=== PATIENT | male | born 1950 | race Caucasian/White ===

== ENCOUNTER → 2019-12-31 12:16 | Outpatient (BNVA) | payer MEDICARE, OTHER, SELFPAY | PROVIDERS: Family Provider Nurse Practitioner Family; PCP Nurse Practitioner Family; Visit Provider Internal Medicine Nephrology | DX: N18.3 Chronic kidney disease, stage 3 (moderate) (principal) | CPT/HCPCS: 80069; 81000; 82306; 82310; 83970; 85025 ==

== ENCOUNTER 2020-01-25 13:47 | Outpatient (CLI) | payer MEDICARE, OTHER, SELFPAY | END 2020-01-25 13:48 | disposition home or self-care (01) | LOC: SPT 13:48 | PROVIDERS: Family Provider Nurse Practitioner Family; PCP Nurse Practitioner Family; Visit Provider Podiatrist Foot & Ankle Surgery | DX: L97.522 Non-pressure chronic ulcer of other part of left foot with fat layer exposed (principal) | CPT/HCPCS: 97760; L4361 ==

== ENCOUNTER → 2020-03-15 11:56 | Outpatient (BNVA) | payer MEDICARE, OTHER, SELFPAY | PROVIDERS: Family Provider Nurse Practitioner Family; PCP Nurse Practitioner Family; Visit Provider Nurse Practitioner Family | DX: R53.83 Other fatigue (principal) | CPT/HCPCS: 71046 ==

== ENCOUNTER 2020-03-15 19:55 | Emergency (ER) | payer MEDICARE, OTHER, SELFPAY ==
[2020-03-15 20:00] VITALS: BP 147/93; PULSE 89; RESP 19; TEMP 36.4; O2SAT 97; BMI 29.0
--- NOTE | 2020-03-15 20:24 | ED_ITS ---
HPI - General Adult General: Chief complaint: General Medical Stated complaint: urgent care sent him/ kidney/liver/lungs Time Seen by Provider: 03/15/20 20:20 History of Present Illness: HPI narrative: Patient is a 69-year-old male who comes to the ED after being sent over here by [facility] in [facility] for elevated creatinine level. Patient has a past medical history of pericardial effusion, hypertension, hyperlipidemia, atrial fibrillation, CVA and type 2 diabetes. Patient states that pain or discomfort. Patient says he feels pretty well. He has been treated for a sinus infection and has been taking cefdinir and a steroid to treat that. He does endorse not drinking a lot of fluids lately and that he feels like he is a little dehydrated. Patient also says that he has had loss of appetite since the onset of his sinus infection. Patient complains of having a mild cough. Patient endorses being constipated and he has not had a bowel movement in approximately 3 days. He says his last bowel movement was hard and formed and he had to strain to get it out. Denies any fever, chills, chest pain, shortness of breath, palpitations, nausea/vomiting, abdominal pain, diarrhea, blood in stool, dysuria and hematuria. Associated symptoms: Deny chest pain, dyspnea, headache(s), nausea, rash, palpitations or vomiting Review of Systems 2 Const: Reports: change in appetite (decrease); Denies: fever(s), chills or fatigue Eyes: Denies: change in vision or eye discomfort ENMT: Denies: throat pain, odynophagia, nasal discharge or nasal congestion Card: Denies: chest pain, palpitations, edema, swelling of feet/ankles, dyspnea on exertion or orthopnea Resp: Reports: non-productive cough; Denies: dyspnea or productive cough GI: Reports: constipation; Denies: abdominal pain, nausea, vomiting, diarrhea or hematochezia : Denies: flank pain, difficulty urinating, dysuria or hematuria Musc: Denies: neck pain, back pain or extremity swelling Skin/Breast: Denies: rash or new lesions Neuro: Denies: headache(s), numbness in extremities or weakness in extremities PFS ED 2 PFSH: Medical History Atrial fibrillation CVA (cerebral vascular accident) Diabetes Gout History of amputation of toe History of MRSA infection History of stroke Hyperlipidemia Hypertension Pericardial effusion Surgical History History of lung surgery Family History Other CAD (coronary artery disease) Cancer Diabetes Hypertension Social History Smoking and tobacco status: never smoked Alcohol intake: never Current occupational status: retired Physical Exam Const: COMMON NORMALS: no acute distress, patient oriented x3 and alert GENERAL APPEARANCE: cooperative and comfortable HENMT: COMMON NORMALS: normocephalic HEAD & SCALP: normocephalic MOUTH: moist mucous membranes abnormal (mild) THROAT: posterior oropharynx normal and uvula midline Eye: COMMON NORMALS: Equal, round and reactive pupils present PUPIL: Yes Equal, round and reactive pupils present and Yes Irregular pupils on the left (Irregular shaped pupil.) Neck/C-Spine: COMMON NORMALS: supple GENERAL: Yes normal visual inspection Resp: COMMON NORMALS: normal respiratory effort, No retractions, No use of accessory muscles and clear to auscultation bilaterally EFFORT & INSPECTION: Yes able to speak in complete sentences, No respiratory distress and No labored AUSCULTATION: clear to auscultation bilaterally Cardio: COMMON NORMALS: regular rate, regular rhythm, S1 normal heart sound present, S2 normal heart sound present, No gallops present (Cardio), No clicks present (Cardio), No murmurs present (Cardio) and Peripheral pulses 2+ throughout RATE: regular rate RHYTHM: regular rhythm HEART SOUNDS: S1 normal heart sound present and S2 normal heart sound present PERIPHERAL PULSES: Peripheral pulses 2+ throughout GI: COMMON NORMALS: Normal to inspection, nondistended, normoactive bowel sounds present, Soft to palpation, non-tender and no masses PALPATION: Yes Soft to palpation : COMMON NORMALS: Yes no CVA tenderness BLADDER/KIDNEY EXAM: Yes no CVA tenderness Back/Pelvis: COMMON NORMALS: no CVA tenderness Extremity: COMMON NORMALS: normal to inspection and no pedal edema Neuro: COMMON NORMALS: patient oriented x3 and moves all extremities SENSORIUM/ORIENTATION: Yes alert Skin: COMMON NORMALS: no rashes or lesions noted GENERAL SKIN EXAM: no rashes or lesions noted and dry skin Course Reevaluation(s): Reevaluation #1: After patient received IV fluids he said he felt more energized and thought he seemed like he is acting like his old self. Vital Signs: Vital signs: Vital Signs Temperature 97.6 F 03/15/20 20:00 Pulse Rate 102 H 03/15/20 23:26 Respiratory Rate 20 H 03/15/20 23:26 Blood Pressure 180/112 03/15/20 23:26 Pulse Oximetry 97 03/15/20 23:26 MDM - General Adult MDM Narrative: Medical decision making narrative: Patient is a 69-year-old male who was sent over to the ED by [facility] due to elevated creatinine lab. Patient has a past medical history of diabetes type 2, hypertension, hyperlipidemia, A. fib. Patient presents to the ED with his only complaint of constipation for the past 3 days. Patient states he is feeling fine. He was recently diagnosed with sinusitis and given a steroid and cefdinir to treat. COVID-19 test pending., UA showed no acute findings. Creatinine was 2.4 and creatinine lab approximately 2 months ago was 1.9. White blood cells 7. The rest of CBC and CMP showed no other acute findings. Chest x-ray showed some possible lower lobe infiltrates but comparing to previous chest x-ray these infiltrates were present suggesting chronic issue. CT of the abdomen showed no acute findings but did show some groundglass infiltrates?consider COVID-19 pneumonia or viral pneumonia. Patient is showing no signs of any respiratory distress and lungs were clear to auscultation bilaterally. Patient was given 1.5 L of IV fluid and discharged. Patient was told to follow-up with primary care doctor by early next week and to get creatinine lab rechecked. Return to ED precautions given. Patient was told that COVID testing should be resulted in 2 to 4 days. Patient understood and agreed with plan. Lab Data: Attestation: I reviewed the patient's lab results. Labs: Lab Results 03/15/20 Range/Units 21:45 Urine Color Yellow (Yellow) Urine Appearance Clear (CLEAR) Urine pH 5 (5-7) Ur Specific Gravit y 1.020 (1.005-1.030) Urine Protein 3+ H (Negative) Urine Glucose (UA) Norm (Normal) Urine Ketones Negative (Negative) Urine Blood 2+ H (Negative) Urine Nitrate Negative (Negative) Urine Bilirubin Neg (NEGATIVE) Urine Urobilinogen Norm (Negative) mg/dL Ur Leukocyte Malina ase Negative (Negative) Urine RBC Rare (0-2) /hpf Urine WBC 0-4 H (0-5) /hpf Ur Squamous Epith Cells Rare (0-5) Amorphous Sediment Not Reportable Urine Bacteria Trace (NONE) Urine Mucus 2+ Imaging Data^: CXR: Attestation: I personally reviewed and interpreted this imaging study as follows: My impression: Right lung infiltrates on lower lobe seen. Unchanged left lower lobe pleural effusion. Previous x-ray showed same infiltrates along with left lower lobe pleural effusion. Pending final radiology report. CT Abd/Pel: Attestation: I personally reviewed and interpreted this imaging study as follows: Radiologist's impression: [address] [address] [address] Scan Report Signed Patient: Clemente Barton Unit #: [id number] : 1950 Age/Sex: 69 / M ADM Date: 03/15/20 Loc: ER Room/Bed: Attending Dr: Ordering Provider/Ordering MD: Rodney Harvey Date of Service: 03/15/20 Procedure(s): CT abdomen pelvis con [id number] Accession Number(s): [id number] Report Number: [id number] PROCEDURE INFORMATION: Exam: CT Abdomen And Pelvis Without Contrast Exam date and time: 03/15/2020 9:09 PM Age: 69 years old Clinical indication: Constipation; Prior surgery; Surgery type: Cholecystectomy, gastric sleeve; Additional info: Constipation and eleated creatinine TECHNIQUE: Imaging protocol: Computed tomography of the abdomen and pelvis without contrast. Radiation optimization: All CT scans at this facility use at least one of these dose optimization techniques: automated exposure control; mA and/or kV adjustment per patient size (includes targeted exams where dose is matched to clinical indication); or iterative reconstruction. COMPARISON: No relevant prior studies available. RADIATION DOSE METRICS: Total DLP (mGy-cm): 1789.2 FINDINGS: Lungs: Multiple bilateral relatively rounded ground-glass infiltrates in both lower lobes. Heart: Pericardial effusion measures up to 7 mm in depth anteriorly. Liver: Normal. No mass. Gallbladder and bile ducts: Normal. No calcified stones. No ductal dilation. Pancreas: Normal. No ductal dilation. Spleen: Normal. No splenomegaly. Adrenals: Normal. No mass. Kidneys and ureters: 2.3 cm exophytic cyst arises from the left lower renal pole. Density is close to that of the kidney and evaluation is limited without IV contrast. Stomach and bowel: Chronic gastric postop changes with small gastric volume. Slightly increased stool in the rectosigmoid colon. Appendix: No evidence of appendicitis. Intraperitoneal space: Unremarkable. No free air. No significant fluid collection. Vasculature: Unremarkable. No abdominal aortic aneurysm. Lymph nodes: Unremarkable. No enlarged lymph nodes. Bladder: Unremarkable as visualized. Reproductive: Unremarkable as visualized. Bones/joints: Unremarkable. No acute fracture. Soft tissues: Elevated left diaphragm appears chronic. There is also a chronic focal diaphragmatic hernia containing a nonobstructed portion of the sigmoid colon. See coronal images 25 [address]/CT abdomen pelvis wo con [id number] IMPRESSION: 1. No acute abdominopelvic findings. 2. Multifocal bilateral lower lobe ground-glass infiltrates. Consider COVID-19 pneumonia as well as other viral pneumonias. 3. Indeterminate left renal cystic lesion. Consider outpatient follow-up with ultrasound to confirm a simple cyst. Radiation Dose CTDIVOL = (mGy): DLP = 1789.2 (mGy-cm) Dictated By: Bud Beltre MD Signed By: Bud Beltre MD Signed Date/Time: 03/15/202147 DD/ 45 Discharge Plan Discharge Patient Disposition: Home Clinical Impression: Acute dehydration, Encounter for screening laboratory testing for COVID-19 virus, Creatinine elevation Constipation Qualifiers: Constipation type: slow transit constipation Qualified Code(s): K59.01 - Slow transit constipation Condition: Stable Prescriptions: New Miralax 17 gram/dose powder 17 gm PO DAILY PRN (Reason: constipation) Qty: 119 RF: 0 No Action metoprolol succinate [Toprol XL] 25 mg tablet extended release 24 hr 25 mg PO BID RF: 0 warfarin [Coumadin] 5 mg tablet See Rx Instructions .ROUTE .COMPLEX RF: 0 cyanocobalamin (vitamin B-12) 1,000 mcg capsule 1,000 mcg PO DAILY RF: 0 aspirin [Adult Low Dose Aspirin] 81 mg tablet,delayed release (DR/EC) 81 mg PO DAILY RF: 0 timolol 0.25 % drops 1 drop ophthalmic (eye) DAILY RF: 0 multivitamin Tablet 1 tab PO DAILY RF: 0 Adult Probiotic 3 billion cell capsule 3,000 mmu cells PO DAILY RF: 0 simvastatin 20 mg tablet 20 mg PO DAILY RF: 0 ondansetron HCl [Zofran] 4 mg tablet 4 mg PO Q8H PRN (Reason: nausea and vomiting) Qty: 20 RF: 0 cholecalciferol (vitamin D3) 25 mcg (1,000 unit) capsule 25 mcg PO DAILY RF: 0 (DME) cam boot See Rx Instructions .Route .MEDSUPPLY Qty: 1 RF: 0 cefdinir 300 mg capsule 300 mg PO BID Qty: 14 RF: 0 Ed A-Hist DM 4-10-10 mg tablet 1 tab PO Q6H PRN (Reason: allergy symptoms) Qty: 30 RF: 0 Discharge Orders: Discharge Order (Routine); Ordered 03/15/20 Ordered By: Rodney Harvey Referrals: Yeni Barry APN [Primary Care Provider] - Discharge Diet: Regular Discharge Activity: Increase activity as tolerated Patient Instructions: Constipation - Adult, Dehydration - Adult Activity Restrictions/Additional Instructions: Follow-up with medical provider as directed by early next week. Make sure you drink plenty of fluids and stay hydrated. Take prescribed MiraLAX as needed for constipation. Have your primary care physician check your creatinine level at your next scheduled appointment. return to the ER or your medical provider if condition worsens. Please read and understand discharge instructions. If any questions, please ask. Discharge Date/Time: 03/15/20 23:28 Coding Level of Care Code ED Accounts Payable Clerk for [employer]elfo Fwd Exam Comprehensive
[2020-03-15 20:34] VITALS: BP 157/108; PULSE 102; RESP 14; O2SAT 98
[2020-03-15] MEDS: sodium chloride 0.9% 1,000 ML 999 ML IV (20:40)
--- NOTE | 2020-03-15 20:48 | XR_ITS ---
WS: [id number] Portable AP upright chest, 03/15/2020 Clinical Data: cough and congestion Comparison: PA chest, 03/15/2020 Findings: No nodules, masses or effusions are seen. The heart is normal. The pulmonary vascularity is not increased. There is a patchy opacity involving the right lung which could represent minimal atel ectasis or early pneumonia. The left diaphragm is elevated with atelectasis over the surface. The aor tic arch and descending aorta are tortuous. XR/XR chest 1V portable [id number] Impression: 1. Minimal patchy opacity involving the right lung which could represent minima l pneumonia and recommend repeat chest x-ray in one to 2 days. 2. No change in elevated left diaphragm and atherosclerosis.
--- NOTE | 2020-03-15 20:48 | CTR_ITS ---
PROCEDURE INFORMATION: Exam: CT Abdomen And Pelvis Without Contrast Exam date and time: 03/15/2020 9:09 PM Age: 69 years old Clinical indication: Constipation; Prior surgery; Surgery type: Cholecystectomy, gastric sleeve; Additional info: Constipation and eleated creatinine TECHNIQUE: Imaging protocol: Computed tomography of the abdomen and pelvis without contrast. Radiation optimization: All CT scans at this facility use at least one of these dose optimization techniques: automated exposure control; mA and/or kV adjustment per patient size (includes targeted exams where dose is matched to clinical indication); or iterative reconstruction. COMPARISON: No relevant prior studies available. RADIATION DOSE METRICS: Total DLP (mGy-cm): 1789.2 FINDINGS: Lungs: Multiple bilateral relatively rounded ground-glass infiltrates in both lower lobes. Heart: Pericardial effusion measures up to 7 mm in depth anteriorly. Liver: Normal. No mass. Gallbladder and bile ducts: Normal. No calcified stones. No ductal dilation. Pancreas: Normal. No ductal dilation. Spleen: Normal. No splenomegaly. Adrenals: Normal. No mass. Kidneys and ureters: 2.3 cm exophytic cyst arises from the left lower renal pole. Density is close to that of the kidney and evaluation is limited without IV contrast. Stomach and bowel: Chronic gastric postop changes with small gastric volume. Slightly increased stool in the rectosigmoid colon. Appendix: No evidence of appendicitis. Intraperitoneal space: Unremarkable. No free air. No significant fluid collection. Vasculature: Unremarkable. No abdominal aortic aneurysm. Lymph nodes: Unremarkable. No enlarged lymph nodes. Bladder: Unremarkable as visualized. Reproductive: Unremarkable as visualized. Bones/joints: Unremarkable. No acute fracture. Soft tissues: Elevated left diaphragm appears chronic. There is also a chronic focal diaphragmatic hernia containing a nonobstructed portion of the sigmoid colon. See coronal images 25 through [address]/CT abdomen pelvis wo con [id number] IMPRESSION: 1. No acute abdominopelvic findings. 2. Multifocal bilateral lower lobe ground-glass infiltrates. Consider COVID-19 pneumonia as well as other viral pneumonias. 3. Indeterminate left renal cystic lesion. Consider outpatient follow-up with ultrasound to confirm a simple cyst. Radiation Dose CTDIVOL = (mGy): DLP = 1789.2 (mGy-cm)
[2020-03-15 22:13] LABS: Add Urine Microscopic? YES; Bilirubin Urine Neg (NEGATIVE); Blood Urine 2+ (Negative); Glucose Urine UA Norm (Normal); Ketones Urine Negative (Negative); Leukocyte Esterase Urine Negative (Negative); Nitrate Urine Negative (Negative); Protein Urine 3+ (Negative); Urine Appearance Clear (CLEAR); Urine Color Yellow (Yellow); Urobilinogen Urine Norm (Negative); pH Urine 5 (5-7)
[2020-03-15 22:14] VITALS: BP 161/114; PULSE 103; RESP 14; O2SAT 97
[2020-03-15 22:14] LABS: Bacteria Urine TRACE; Mucus Urine 2+; RBC Urine RARE /hpf (0-2); Squamous Epithelial Cell Urine RARE (0-5); WBC Urine 0-4 /hpf (0-5)
[2020-03-15] MEDS: sodium chloride 0.9% 500 ML 999 ML IV (22:47)
[2020-03-15 22:49] VITALS: BP 161/102; PULSE 93; RESP 14; O2SAT 97
[2020-03-15 23:26] VITALS: BP 180/112; PULSE 102; RESP 20; O2SAT 97
[2020-03-17 15:17] LABS: Quest SARS-CoV-2 RNA DETECTED (NOT DETECTED)
--- NOTE | 2020-03-17 16:18 | PC.NURSE ---
PT WAS CALLED AND INFORMED OF A POSITIVE COVID RESULT
== END 2020-03-15 23:28 | disposition home or self-care (01) ==
PROVIDERS: Emergency Medicine; Emergency Provider Physician Assistant; PCP Nurse Practitioner Family
DX: K59.01 Slow transit constipation (principal); E86.0 Dehydration; U07.1 COVID-19; I48.91 Unspecified atrial fibrillation; Z86.73 Personal history of transient ischemic attack (TIA), and cerebral infarction without residual deficits; E11.9 Type 2 diabetes mellitus without complications; E78.5 Hyperlipidemia, unspecified; I10 Essential (primary) hypertension
CPT/HCPCS: 12345; 71045; 74176; 80053; 81001; 85025; 87635; 96360; 96361; 99282; 99283; J7030; J7040

== ENCOUNTER 2020-04-19 10:08 | Outpatient (CLI) | payer MEDICARE, OTHER, SELFPAY ==
--- NOTE | 2020-04-19 10:15 | USCV_ITS ---
Clemente Barton Age: 69 Gender: M : 1950 Exam Date: 04/19/2020 10:53 Ordering Phys: Katie Kearney MD ([email or web address]) Technologist: Rosalinda Umana Exam Location: [facility] [place] Indication: PERICARDIAL EFFUSION BP: 135 / 83 HR: 82 Rhythm: Sinus Technical Quality: Suboptimal MEASUREMENTS (Male / Female) Normal Values 2D ECHO LV Diastolic Diameter PLAX 3.6 cm 4.2 - 5.9 / 3.9 - 5.3 cm LV Systolic Diameter PLAX 3.1 cm LV Chamber Size 3.4 cm IVS Diastolic Thickness 1.2 cm 0.6 - 1.0 / 0.6 - 0.9 cm IVS Systolic Thickness 1.9 cm LVPW Diastolic Thickness 1.7 cm 0.6 - 1.0 / 0.6 - 0.9 cm LVPW Systolic Thickness 1.9 cm RV Chamber Size 3.6 cm LVOT Diameter 2.0 cm LV Ejection Fraction 2D Teich 27.8 % LV Ejection Fraction MOD 2C 59.8 % LV Ejection Fraction 2C AL 60.3 % LA Diameter 4.2 cm LA Width 4.3 cm LA Height 4.9 cm RA Width 2.8 cm RA Height 4.9 cm Aorta at Sinotubular Diameter 2.6 cm M-MODE LV Diastolic Diameter MM 4.8 cm 4.2 - 5.9 / 3.9 - 5.3 cm LV Systolic Diameter MM 3.6 cm LV Ejection Fraction MM Teich 50.5 % IVS Diastolic Thickness MM 0.7 cm 0.6 - 1.0 / 0.6 - 0.9 cm IVS Systolic Thickness MM 1.1 cm LVPW Diastolic Thickness MM 1.0 cm 0.6 - 1.0 / 0.6 - 0.9 cm LVPW Systolic Thickness MM 1.3 cm Aortic Annulus Diameter 3.7 cm LA Ao Ratio MM 1.2 MV E Point Septal Separation 0.9 cm FINDINGS Left Ventricle Normal left ventricular size and systolic function, EF55%. Mild to moderate concentric left ventricular hypertrophy.no regional wall motion abnormalities. Right Ventricle The right ventricle is normal in size and function. Right Atrium The right atrium is normal in size. Left Atrium Mildly increased left atrial size. Mitral Valve No gross abnormalities noted. Aortic Valve Thickened aortic valve. Tricuspid Valve No gross abnormalities noted Pulmonic Valve Pulmonic valve not well visualized. Pericardium Normal pericardium without effusion. Aorta Normal ascending aorta dimension. CONCLUSIONS Normal left ventricular size and systolic function, EF55%. Mild to moderate concentric left ventricular hypertrophy.no regional wall motion abnormalities. Thickened aortic valve. Mildly increased left atrial size. There is no pericardial effusion. There are no intracardiac masses. No significant stenotic or ureteral lesions. Compared to the study from 03/11/2019, there is no significant change in the 2D findings Dr Katie Kearney MD FAC (Electronically Signed) Final Date: 19 April 2020 18:11 S
== END 2020-04-19 10:09 | disposition home or self-care (01) ==
LOC: RAD 10:16
PROVIDERS: PCP Nurse Practitioner Family; Visit Provider Internal Medicine Cardiovascular Disease
DX: I31.3 Pericardial effusion (noninflammatory) (principal); I35.8 Other nonrheumatic aortic valve disorders
CPT/HCPCS: 93308

== ENCOUNTER 2020-08-24 01:49 | Emergency (ER) | payer MEDICARE, OTHER, SELFPAY ==
[2020-08-24] VITALS (38 sets, daily range): BP systolic 106–198; BP diastolic 67–111; PULSE 68–85; RESP 14–27; TEMP 33.9–34.8; O2SAT 99–100; BMI 29.5
--- NOTE | 2020-08-24 01:59 | XR_ITS ---
WS: [id number] Portable AP semiupright chest, 08/24/2020 Clinical Data: syncope Comparison: Portable chest, 03/15/2020. Findings: Air is elevation of the left diaphragm with patchy atelectasis and/or pneumonia overlying t he diaphragm. There is an endotracheal tube above the marcus. The right lung is clear. The heart size is normal. The aortic arch and descending aorta are tortuous. Monitor leads are on the chest wall. XR/XR chest 1V portable [id number] Impression: 1. Patchy atelectasis and/or pneumonia in the left lower lobe with elevation le ft diaphragm. 2. Endotracheal tube above the marcus.
--- NOTE | 2020-08-24 02:01 | CTR_ITS ---
PROCEDURE INFORMATION: Exam: CT Head Without Contrast Exam date and time: 08/24/2020 2:04 AM Age: 69 years old Clinical indication: Syncope and collapse and other: Resp arrest. Syncope. ; Patient HX: Syncope with resp. Arrest. Patient intubated prior to er arrival. Hypertensive with 94 degree rectal temperature. History of right hemisphere stroke. TECHNIQUE: Imaging protocol: Computed tomography of the head without contrast. Radiation optimization: All CT scans at this facility use at least one of these dose optimization techniques: automated exposure control; mA and/or kV adjustment per patient size (includes targeted exams where dose is matched to clinical indication); or iterative reconstruction. COMPARISON: CT head wo con* [id number] 11/27/2018 12:22 PM RADIATION DOSE METRICS: Total DLP (mGy-cm): 937.02 FINDINGS: Brain: Large area of encephalomalacia in the right cerebral hemisphere involving portions of the right parietal lobe and right temporal lobe. No abnormal intra-axial or extra-axial fluid collections are identified. There is no midline shift. No intracranial hemorrhage identified. Ventricles: The ventricles and sulci are mildly and diffusely prominent, compatible with global brain volume loss. Superimposed on this is ex vacuo dilation of the right lateral ventricle posterior horn. Bones/joints: Unremarkable as visualized. Sinuses: Mild patchy opacities in the ethmoid sinus. Mild mucosal thickening of the right maxillary sinus. Mastoid air cells: Visualized mastoid air cells are well aerated. Soft tissues: Unremarkable. CT/CT head wo con* [id number] IMPRESSION: 1. No acute intracranial process identified. 2. Large area of encephalomalacia in the right cerebral hemisphere involving portions of the right parietal lobe and right temporal lobe. Radiation Dose CTDIVOL = (mGy): DLP = 937.02 (mGy-cm)
--- NOTE | 2020-08-24 02:01 | ECG_ITS ---
[facility] Test Date: 2020-08-24 Pat Name: Clemente Barton Department: Room: Gender: Male Head Chef: : 1950 Requested By: Esperanza Jj Order Number: [id number] Elva MD: Rafael Carroll M.D. Measurements Intervals [place] Rate: 75 P: NV: QRS: 66 QRSD: 102 T: 21 QT: 442 QTc: 495 Interpretive Statements ATRIAL FIBRILLATION MODERATE ST DEPRESSION [0.05+ mV ST DEPRESSION] Compared to ECG 11/27/2018 12:39:03 Incomplete right bundle-branch block no longer present ST (T wave) deviation still present Electronically Signed On 08-24-2020 16:04:01 SUPPORT SERVICES MANAGER by Rafael Carroll M.D. [id number]
--- NOTE | 2020-08-24 02:10 | ED_ITS ---
HPI - Altered Mental Status General: Chief Complaint: Shortness of Breath/Dyspnea Stated Complaint: respitory arrest intubated Time Seen by Provider: 08/24/20 02:07 Source: family and EMS Mode of arrival: EMS Limitations: other History of Present Illness: HPI narrative: 69-year-old male brought in by EMS after he became unresponsive at home at approximately 1130 last night. When EMS arrived he did have a pulse, agonal respirations, hypoxic. He was intubated at the scene, still not responding to any stimuli. In route, he became slightly agitated, they administered rocuronium and ketamine. When family members arrived later, was able to get a better HPI from the patient's . Apparently he was woken up from sleep complaining of left shoulder and neck pain, diffuse muscle spasms. Short time later he became completely unresponsive, and the patient's was instructed to start CPR by trains dispatcher supervisor. [place], it took at least 30 minutes f or the EMS to arrive due to weather conditions, during that time he remained unconscious. He has had chronic right shoulder pain, was scheduled to have surgery, however it was canceled due to his elevated blood pressures. He was just recently started on chlorthalidone and potassium by his lining stamper, but his blood pressures have continued to be very high. He has a history of a significant CVA several years ago, and has some residual deficits including left facial droop, cognitive delay etc. He is taking Coumadin for chronic A. fib, there is been no recent change in his dose. MD complaint: decreased responsiveness Review of Systems General: Reports: 10 or more systems reviewed and unremarkable except in HPI and below Const: Reports: chills PFSH ED PFSH: Medical History (Updated 08/24/20 @ 08:49 by Virginie العلي MD) Atrial fibrillation CVA (cerebral vascular accident) Diabetes Gout History of amputation of toe History of MRSA infection History of stroke Hyperlipidemia Hypertension Pericardial effusion Surgical History History of lung surgery Family History Other CAD (coronary artery disease) Cancer Diabetes Hypertension Social History Smoking and tobacco status: never smoked Alcohol intake: never Current occupational status: retired Physical Exam Const: GENERAL APPEARANCE: ill appearing and frail appearing NUTRITIONAL APPEARANCE: overweight OTHER: Unresponsive, paralyzed, intubated HENMT: COMMON NORMALS: normocephalic and atraumatic HEAD & SCALP: normocephalic and atraumatic FACE & SINUS: normal facial exam and face symmetric; no abrasion, no ecchymosis and no erythema MOUTH: no mouth trauma Eye: PUPIL: Yes Dilated pupils on the left and Yes Irregular pupils on the left OTHER: Unable to assess due to intubated status Chest: COMMONS NORMALS: normal inspection of the chest and normal palpation of entire chest wall Resp: COMMON NORMALS: clear to auscultation bilaterally EFFORT & INSPECTION: Yes symmetric chest movement AUSCULTATION: clear to auscultation bilaterally Cardio: COMMON NORMALS: S1 normal heart sound present, S2 normal heart sound present and Peripheral pulses 2+ throughout RHYTHM: abnormal rhythm HEART SOUNDS: S1 normal heart sound present and S2 normal heart sound present PERIPHERAL PULSES: Peripheral pulses 2+ throughout GI: COMMON NORMALS: Normal to inspection, nondistended, normoactive bowel sounds present, Soft to palpation, non-tender and no masses AUSCULTATION: Yes normoactive bowel sounds PALPATION: Yes Soft to palpation Extremity: GENERAL: Yes clubbing, Yes cyanosis, No edema and Yes pallor Neuro: SONNY COMA SCALE: GCS not evaluated (Had received sedation and paralyzing agent) Skin: COMMON NORMALS: no rashes or lesions noted, no wounds and no jaundice GENERAL SKIN EXAM: no rashes or lesions noted Course Vital Signs: Vital signs: Vital Signs Temperature 94.6 F L 08/24/20 06:27 Pulse Rate 76 08/24/20 06:50 Respiratory Rate 19 H 08/24/20 06:50 Blood Pressure 122/84 08/24/20 06:50 Pulse Oximetry 100 08/24/20 06:50 MDM - Altered Mental Status MDM Narrative: Medical decision making narrative: 69-year-old male with a history of A. fib and previous CVA had a sudden onset decreased responsiveness and then loss of consciousness this evening at 11:30 PM. He was intubated prior to arrival. Time between when he became unresponsive to arrival at the ED was approximately 3 to 4 hours. On arrival he was severely hypertensive, 215/115. Patient was started on a nicardipine drip. Initial EKG did not show any changes concerning for acute ischemia. Serial troponins stable initial head CT did not show any acute changes. CTA of head and neck showed new occlusions of right internal carotid, right M2 branch, basilar artery. The case was discussed with Dr. Sanchez, neurologist at [facility] in [place]. She accepted the transfer for further evaluation and treatment. Patient will be transferred to the ED. Accepting physician Dr Burrell. Differential Diagnosis: Differential diagnosis altered mental status: Likely altered mental status, hypoglycemia, hyponatremia, subarachnoid hemorrhage and sepsis Medical Records: Attestation: I reviewed the patient's medical records. Lab Data: Attestation: I reviewed the patient's lab results. Labs: Lab Results 08/24/20 08/24/20 08/24/20 Range/Units 02:02 02:02 02:02 WBC 7.7 (4.0-10.0) 10^3/ uL RBC 4.68 (4.1-5.3) 10^6/u L Hgb 14.1 (11.7-16.6) g/dL Hct 43.6 (42.0-52.0) % MCV 93.2 (80-94) fL MCH 30.1 (28.0-34.0) pg MCHC 32.3 (30.0-36.0) g/dL RDW 12.8 (12.1-15.1) % Plt Count 156 (130-400) 10^3/c mm MPV 12.4 H (7.4-10.4) fL Neut % (Auto) 67.6 % Lymph % (Auto) 22.3 % Rogers % (Auto) 6.9 % Eos % (Auto) 2.2 % Baso % (Auto) 0.9 % Neut # (Auto) 5.20 (1.8-7.7) 10^3/u L Lymph # (Auto) 1.7 (0.8-4.8) 10^3/u L Rogers # (Auto) 0.5 (0.2-0.9) 10^3/u L Eos # (Auto) 0.2 (0.0-0.8) 10^3/u L Baso # (Auto) 0.1 (0.0-0.1) 10^3/u L Nucleated RBC % (a uto) 0 % Nucleated RBCs # 0.0 /100WBC PT 24.70 H (12.1-14.9) SECO NDS INR 2.14 H (0.8-1.2) APTT 38.9 H (23.9-36.7) SECO NDS Specimen Type Sample Site ABG pH (7.35-7.45) ABG pCO2 (35-45) mmHg ABG pO2 (80.0-100.0) mmH g ABG HCO3 (22-26) mmol/L ABG O2 Saturation ABG Base Excess (-2.0-2.0) mmol/ L Diego Test A-a O2 Gradient (5-10) mmHg Hematocrit (42-52) % Hgb O2 Saturation (95-100) % Carboxyhemoglobin (0.4-20.1) %THgb Methemoglobin (0.4-1.5) % Total Hemoglobin (14-18) g/dL Ionized Calcium (1.1-1.4) mmol/L O2 Delivery Device Mechanical Rate FiO2 % Tidal Volume PEEP cmH20 Tumbler Machine Operator Helper ID Sodium 141 (136-145) mmol/L Potassium 3.9 (3.5-5.1) mmol/L Chloride 105 (98-107) mmol/L Carbon Dioxide 25 (22-29) mmol/L Anion Gap 14.9 (5-19) BUN 31 H (8-23) mg/dL Creatinine 1.8 H (0.7-1.2) mg/dL GFR Calculation 37.7 L (90-130) mL/min Glucose 174 H (65-115) mg/dL POC Glucose (70-110) mg/dL Calculated Osmolal ity 303 H (285-295) mOsm/k g Lactate (0.5-2.2) mmol/L Calcium 9.4 (8.5-10.5) mg/dL Magnesium 1.9 (1.7-2.3) mg/dL Total Bilirubin 0.5 (0.15-1.2) mg/dL AST 22 (0-40) U/L ALT 14 (0-41) U/L Alkaline Phosphata se 105 (40-130) IU/L Troponin T Baselin e (0-15) ng/L Troponin T [address] [place] (0-15) ng/L Delta Troponin T (0-10) ABS# NT-Pro-B Natriuret Pep 2637 H (0-125) pg/mL Total Protein 6.8 (6.6-8.7) g/dL Albumin 4.0 (3.5-5.2) g/dL Globulin 2.8 (1.3-4.6) g/dL Urine Color (Yellow) Urine Appearance (CLEAR) Urine pH (5-7) Ur Specific Gravit y (1.005-1.030) Urine Protein (Negative) Urine Glucose (UA) (Normal) Urine Ketones (Negative) Urine Blood (Negative) Urine Nitrate (Negative) Urine Bilirubin (Negative) Prot Sulfosalicyli c Acd (Negative) Urine Urobilinogen (Negative) mg/dL Ur Leukocyte Malina ase (Negative) Urine RBC (0-2) /hpf Urine WBC (0-5) /hpf Ur Squamous Epith Cells (0-5) /hpf Amorphous Sediment Urine Bacteria (NONE) /hpf Urine Sperm /hpf Influenza Type A A g (Negative) Influenza Type B A g (Negative) 08/24/20 08/24/20 08/24/20 Range/Units 02:02 02:02 02:20 WBC (4.0-10.0) 10^3/ uL RBC (4.1-5.3) 10^6/u L Hgb (11.7-16.6) g/dL Hct (42.0-52.0) % MCV (80-94) fL MCH (28.0-34.0) pg MCHC (30.0-36.0) g/dL RDW (12.1-15.1) % Plt Count (130-400) 10^3/c mm MPV (7.4-10.4) fL Neut % (Auto) % Lymph % (Auto) % Rogers % (Auto) % Eos % (Auto) % Baso % (Auto) % Neut # (Auto) (1.8-7.7) 10^3/u L Lymph # (Auto) (0.8-4.8) 10^3/u L Rogers # (Auto) (0.2-0.9) 10^3/u L Eos # (Auto) (0.0-0.8) 10^3/u L Baso # (Auto) (0.0-0.1) 10^3/u L Nucleated RBC % (a uto) % Nucleated RBCs # /100WBC PT (12.1-14.9) SECO NDS INR (0.8-1.2) APTT (23.9-36.7) SECO NDS Specimen Type Arterial Sample Site Radial, left ABG pH 7.44 (7.35-7.45) ABG pCO2 34.5 L (35-45) mmHg ABG pO2 535.0 H (80.0-100.0) mmH g ABG HCO3 23.6 (22-26) mmol/L ABG O2 Saturation > 100.0 ABG Base Excess 0.1 (-2.0-2.0) mmol/ L Diego Test N/a A-a O2 Gradient 16.4 H (5-10) mmHg Hematocrit 44.0 (42-52) % Hgb O2 Saturation 99.1 (95-100) % Carboxyhemoglobin 0.5 (0.4-20.1) %THgb Methemoglobin 0.8 (0.4-1.5) % Total Hemoglobin 14.4 (14-18) g/dL Ionized Calcium 1.1 (1.1-1.4) mmol/L O2 Delivery Device Vent Mechanical Rate 14.0 FiO2 100.0 % Tidal Volume 0.50 PEEP 8.0 cmH20 Tumbler Machine Operator Helper ID [id number] Sodium 144.0 H (136-145) mmol/L Potassium 3.3 L (3.5-5.1) mmol/L Chloride (98-107) mmol/L Carbon Dioxide (22-29) mmol/L Anion Gap (5-19) BUN (8-23) mg/dL Creatinine (0.7-1.2) mg/dL GFR Calculation (90-130) mL/min Glucose 190.0 H (65-115) mg/dL POC Glucose (70-110) mg/dL Calculated Osmolal ity (285-295) mOsm/k g Lactate 1.5 (0.5-2.2) mmol/L Calcium (8.5-10.5) mg/dL Magnesium (1.7-2.3) mg/dL Total Bilirubin (0.15-1.2) mg/dL AST (0-40) U/L ALT (0-41) U/L Alkaline Phosphata se (40-130) IU/L Troponin T Baselin e 28 H (0-15) ng/L Troponin T [address] [place] (0-15) ng/L Delta Troponin T (0-10) ABS# NT-Pro-B Natriuret Pep (0-125) pg/mL Total Protein (6.6-8.7) g/dL Albumin (3.5-5.2) g/dL Globulin (1.3-4.6) g/dL Urine Color (Yellow) Urine Appearance (CLEAR) Urine pH (5-7) Ur Specific Gravit y (1.005-1.030) Urine Protein (Negative) Urine Glucose (UA) (Normal) Urine Ketones (Negative) Urine Blood (Negative) Urine Nitrate (Negative) Urine Bilirubin (Negative) Prot Sulfosalicyli c Acd (Negative) Urine Urobilinogen (Negative) mg/dL Ur Leukocyte Malina ase (Negative) Urine RBC (0-2) /hpf Urine WBC (0-5) /hpf Ur Squamous Epith Cells (0-5) /hpf Amorphous Sediment Urine Bacteria (NONE) /hpf Urine Sperm /hpf Influenza Type A A g (Negative) Influenza Type B A g (Negative) 08/24/20 08/24/20 08/24/20 Range/Units 02:25 02:28 04:02 WBC (4.0-10.0) 10^3/ uL RBC (4.1-5.3) 10^6/u L Hgb (11.7-16.6) g/dL Hct (42.0-52.0) % MCV (80-94) fL MCH (28.0-34.0) pg MCHC (30.0-36.0) g/dL RDW (12.1-15.1) % Plt Count (130-400) 10^3/c mm MPV (7.4-10.4) fL Neut % (Auto) % Lymph % (Auto) % Rogers % (Auto) % Eos % (Auto) % Baso % (Auto) % Neut # (Auto) (1.8-7.7) 10^3/u L Lymph # (Auto) (0.8-4.8) 10^3/u L Rogers # (Auto) (0.2-0.9) 10^3/u L Eos # (Auto) (0.0-0.8) 10^3/u L Baso # (Auto) (0.0-0.1) 10^3/u L Nucleated RBC % (a uto) % Nucleated RBCs # /100WBC PT (12.1-14.9) SECO NDS INR (0.8-1.2) APTT (23.9-36.7) SECO NDS Specimen Type Sample Site ABG pH (7.35-7.45) ABG pCO2 (35-45) mmHg ABG pO2 (80.0-100.0) mmH g ABG HCO3 (22-26) mmol/L ABG O2 Saturation ABG Base Excess (-2.0-2.0) mmol/ L Diego Test A-a O2 Gradient (5-10) mmHg Hematocrit (42-52) % Hgb O2 Saturation (95-100) % Carboxyhemoglobin (0.4-20.1) %THgb Methemoglobin (0.4-1.5) % Total Hemoglobin (14-18) g/dL Ionized Calcium (1.1-1.4) mmol/L O2 Delivery Device Mechanical Rate FiO2 % Tidal Volume PEEP cmH20 Tumbler Machine Operator Helper ID Sodium (136-145) mmol/L Potassium (3.5-5.1) mmol/L Chloride (98-107) mmol/L Carbon Dioxide (22-29) mmol/L Anion Gap (5-19) BUN (8-23) mg/dL Creatinine (0.7-1.2) mg/dL GFR Calculation (90-130) mL/min Glucose (65-115) mg/dL POC Glucose (70-110) mg/dL Calculated Osmolal ity (285-295) mOsm/k g Lactate (0.5-2.2) mmol/L Calcium (8.5-10.5) mg/dL Magnesium (1.7-2.3) mg/dL Total Bilirubin (0.15-1.2) mg/dL AST (0-40) U/L ALT (0-41) U/L Alkaline Phosphata se (40-130) IU/L Troponin T Baselin e (0-15) ng/L Troponin T [address] [place] 23.02 H (0-15) ng/L Delta Troponin T -4.98 L (0-10) ABS# NT-Pro-B Natriuret Pep (0-125) pg/mL Total Protein (6.6-8.7) g/dL Albumin (3.5-5.2) g/dL Globulin (1.3-4.6) g/dL Urine Color Straw (Yellow) Urine Appearance Clear (CLEAR) Urine pH 8 H (5-7) Ur Specific Gravit y 1.010 (1.005-1.030) Urine Protein 1+ H (Negative) Urine Glucose (UA) Trace H (Normal) Urine Ketones 1+ H (Negative) Urine Blood Neg (Negative) Urine Nitrate Negative (Negative) Urine Bilirubin Neg (Negative) Prot Sulfosalicyli c Acd Positive (Negative) Urine Urobilinogen Norm (Negative) mg/dL Ur Leukocyte Malina ase Negative (Negative) Urine RBC 0-4 H (0-2) /hpf Urine WBC Rare (0-5) /hpf Ur Squamous Epith Cells Rare (0-5) /hpf Amorphous Sediment Not Reportable Urine Bacteria None (NONE) /hpf Urine Sperm 2+ /hpf Influenza Type A A g Negative (Negative) Influenza Type B A g Negative (Negative) 08/24/20 Range/Units 04:02 WBC (4.0-10.0) 10^3/ uL RBC (4.1-5.3) 10^6/u L Hgb (11.7-16.6) g/dL Hct (42.0-52.0) % MCV (80-94) fL MCH (28.0-34.0) pg MCHC (30.0-36.0) g/dL RDW (12.1-15.1) % Plt Count (130-400) 10^3/c mm MPV (7.4-10.4) fL Neut % (Auto) % Lymph % (Auto) % Rogers % (Auto) % Eos % (Auto) % Baso % (Auto) % Neut # (Auto) (1.8-7.7) 10^3/u L Lymph # (Auto) (0.8-4.8) 10^3/u L Rogers # (Auto) (0.2-0.9) 10^3/u L Eos # (Auto) (0.0-0.8) 10^3/u L Baso # (Auto) (0.0-0.1) 10^3/u L Nucleated RBC % (a uto) % Nucleated RBCs # /100WBC PT (12.1-14.9) SECO NDS INR (0.8-1.2) APTT (23.9-36.7) SECO NDS Specimen Type Sample Site ABG pH (7.35-7.45) ABG pCO2 (35-45) mmHg ABG pO2 (80.0-100.0) mmH g ABG HCO3 (22-26) mmol/L ABG O2 Saturation ABG Base Excess (-2.0-2.0) mmol/ L Diego Test A-a O2 Gradient (5-10) mmHg Hematocrit (42-52) % Hgb O2 Saturation (95-100) % Carboxyhemoglobin (0.4-20.1) %THgb Methemoglobin (0.4-1.5) % Total Hemoglobin (14-18) g/dL Ionized Calcium (1.1-1.4) mmol/L O2 Delivery Device Mechanical Rate FiO2 % Tidal Volume PEEP cmH20 Tumbler Machine Operator Helper ID Sodium (136-145) mmol/L Potassium (3.5-5.1) mmol/L Chloride (98-107) mmol/L Carbon Dioxide (22-29) mmol/L Anion Gap (5-19) BUN (8-23) mg/dL Creatinine (0.7-1.2) mg/dL GFR Calculation (90-130) mL/min Glucose (65-115) mg/dL POC Glucose 192 H (70-110) mg/dL Calculated Osmolal ity (285-295) mOsm/k g Lactate (0.5-2.2) mmol/L Calcium (8.5-10.5) mg/dL Magnesium (1.7-2.3) mg/dL Total Bilirubin (0.15-1.2) mg/dL AST (0-40) U/L ALT (0-41) U/L Alkaline Phosphata se (40-130) IU/L Troponin T Baselin e (0-15) ng/L Troponin T [address] [place] (0-15) ng/L Delta Troponin T (0-10) ABS# NT-Pro-B Natriuret Pep (0-125) pg/mL Total Protein (6.6-8.7) g/dL Albumin (3.5-5.2) g/dL Globulin (1.3-4.6) g/dL Urine Color (Yellow) Urine Appearance (CLEAR) Urine pH (5-7) Ur Specific Gravit y (1.005-1.030) Urine Protein (Negative) Urine Glucose (UA) (Normal) Urine Ketones (Negative) Urine Blood (Negative) Urine Nitrate (Negative) Urine Bilirubin (Negative) Prot Sulfosalicyli c Acd (Negative) Urine Urobilinogen (Negative) mg/dL Ur Leukocyte Malina ase (Negative) Urine RBC (0-2) /hpf Urine WBC (0-5) /hpf Ur Squamous Epith Cells (0-5) /hpf Amorphous Sediment Urine Bacteria (NONE) /hpf Urine Sperm /hpf Influenza Type A A g (Negative) Influenza Type B A g (Negative) Discharge Plan Discharge Patient Disposition: Transfer to ED Clinical Impression: CVA (cerebral vascular accident), Unresponsive state Prescriptions: No Action warfarin [Coumadin] 5 mg tablet See Rx Instructions .ROUTE .COMPLEX RF: 0 cyanocobalamin (vitamin B-12) 1,000 mcg capsule 1,000 mcg PO DAILY RF: 0 aspirin [Adult Low Dose Aspirin] 81 mg tablet,delayed release (DR/EC) 81 mg PO DAILY RF: 0 timolol 0.25 % drops 1 drop ophthalmic (eye) DAILY RF: 0 multivitamin Tablet 1 tab PO DAILY RF: 0 Adult Probiotic 3 billion cell capsule 3,000 mmu cells PO DAILY RF: 0 simvastatin 20 mg tablet 20 mg PO DAILY RF: 0 ondansetron HCl [Zofran] 4 mg tablet 4 mg PO Q8H PRN (Reason: nausea and vomiting) Qty: 20 RF: 0 mupirocin 2 % ointment 1 applic topical BID 21 Days Qty: 15 RF: 0 cholecalciferol (vitamin D3) 25 mcg (1,000 unit) capsule 25 mcg PO DAILY RF: 0 (DME) cam boot See Rx Instructions .Route .MEDSUPPLY Qty: 1 RF: 0 cefdinir 300 mg capsule 300 mg PO BID Qty: 14 RF: 0 Ed A-Hist DM 4-10-10 mg tablet 1 tab PO Q6H PRN (Reason: allergy symptoms) Qty: 30 RF: 0 olmesartan [Benicar] 40 mg tablet 40 mg PO DAILY RF: 0 metoprolol succinate 200 mg tablet extended release 24 hr 200 mg PO DAILY RF: 0 amlodipine 5 mg tablet 5 mg PO DAILY Qty: 30 RF: 5 chlorthalidone 25 mg tablet 25 mg PO DAILY Qty: 30 RF: 5 potassium chloride 8 mEq tablet extended release 8 meq PO DAILY Qty: 30 RF: 5 Miralax 17 gram/dose powder 17 gm PO DAILY PRN (Reason: constipation) Qty: 119 RF: 0 Referrals: Jhonny,CRUZ Jaime [Primary Care Provider] - Coding Level of Care Code ED Mobile Mechanic for Chg Georgi
[2020-08-24 02:19] LABS: Basophils # 0.1 10^3/uL (0.0-0.1); Basophils % 0.9 %; Eosinophils # 0.2 10^3/uL (0.0-0.8); Eosinophils % 2.2 %; Hematocrit 43.6 % (42.0-52.0); Hemoglobin 14.1 g/dL (11.7-16.6); Lymphocytes # 1.7 10^3/uL (0.8-4.8); Lymphocytes % 22.3 %; Mean Corpuscular HGB Conc 32.3 g/dL (30.0-36.0); Mean Corpuscular Hemoglobin 30.1 pg (28.0-34.0); Mean Corpuscular Volume 93.2 fL (80-94); Mean Platelet Volume 12.4 fL (7.4-10.4); Monocytes # 0.5 10^3/uL (0.2-0.9); Monocytes % 6.9 %; Neutrophils % 67.6 %; Nucleated Red Blood Cells % 0 %; Platelet Count 156 10^3/cmm (130-400); Red Blood Count 4.68 10^6/uL (4.1-5.3); Red Cell Distribution Width 12.8 % (12.1-15.1); White Blood Count 7.7 10^3/uL (4.0-10.0)
[2020-08-24 02:28] LABS: ABG PCO2 34.5 mmHg (35-45); ABG PH Result 7.44 (7.35-7.45); Alveolar-Arterial Oxygen Gradi 16.4 mmHg (5-10); Base Excess ABG 0.1 mmol/L (-2.0-2.0); Blood Gas Sample Site Radial, left; Blood Gas Sample Type Arterial; Carboxyhemoglobin 0.5 %THgb (0.4-20.1); HCO3 ABG 23.6 mmol/L (22-26); HGB O2 Sat 99.1 % (95-100); Ionized Calcium Level - ABG 1.1 mmol/L (1.1-1.4); Methemoglobin 0.8 % (0.4-1.5); Oxygen Device VENT; Oxygen Saturation ABG > 100.0; Potassium Level - ABG 3.3 mmol/L (3.5-5.0); Total Hemoglobin 14.4 g/dL (14-18)
[2020-08-24 02:29] LABS: Lactate (Lactic Acid level) 1.5 mmol/L (0.5-2.2); Troponin(5th) Baseline 28 ng/L (0-15)
[2020-08-24 02:30] LABS: INR 2.14 (0.8-1.2)
[2020-08-24] MEDS: sodium chloride 0.9% 1,000 ML 999 ML IV (02:30)
[2020-08-24 02:31] LABS: Partial Thromboplastin Time 38.9 SECONDS (23.9-36.7)
[2020-08-24 02:38] LABS: Alanine Aminotransferase 14 U/L (0-41); Alkaline Phosphatase 105 IU/L (40-130); Anion Gap 14.9 (5-19); Aspartate Amino Transferase 22 U/L (0-40); Blood Urea Nitrogen 31 mg/dL (8-23); Calcium 9.4 mg/dL (8.5-10.5); Carbon Dioxide 25 mmol/L (22-29); Chloride 105 mmol/L (98-107); Globulin 2.8 g/dL (1.3-4.6); Glomerular Filtration Rate 37.7 mL/min (90-130); Glucose 174 mg/dL (65-115); Magnesium 1.9 mg/dL (1.7-2.3); NT Pro B Type Natriuretic Pept 2637 pg/mL (0-125); Osmolality Calculated 303 mOsm/kg (285-295); Potassium 3.9 mmol/L (3.5-5.1); Sodium 141 mmol/L (136-145); Total Bilirubin 0.5 mg/dL (0.15-1.2); Total Protein 6.8 g/dL (6.6-8.7)
[2020-08-24] MEDS: nicardipine 20 MG/200 ML PREMIX 50 MG IV (02:42)
[2020-08-24 02:43] LABS: Bilirubin Urine Neg (Negative); Blood Urine Neg (Negative); Glucose Urine UA Trace (Normal); Ketones Urine 1+ (Negative); Nitrate Urine Negative (Negative); Protein Urine 1+ (Negative); Urine Appearance Clear (CLEAR); Urine Color Straw (Yellow); pH Urine 8 (5-7)
[2020-08-24 02:44] LABS: Add Urine Microscopic? YES; Leukocyte Esterase Urine Negative (Negative); Sulfosalicylic Acid Urine Positive (Negative); Urobilinogen Urine Norm (Negative)
[2020-08-24 02:45] LABS: RBC Urine 0-4 /hpf (0-2); Squamous Epithelial Cell Urine RARE /hpf (0-5); WBC Urine RARE /hpf (0-5)
[2020-08-24 02:47] LABS: Add Urine Culture? No; Sperm Urine 2+ /hpf
[2020-08-24 02:59] LABS: Influenza A by IFA Negative (Negative); Influenza B by IFA Negative (Negative)
--- NOTE | 2020-08-24 04:01 | ECG_ITS ---
[facility] Test Date: 2020-08-24 Pat Name: Clemente Barton Department: Room: Gender: Male Hand Candle Molder: : 1950 Requested By: Esperanza Jj Order Number: [id number] Elva MD: Rafael Carroll M.D. Measurements Intervals [place] Rate: 75 P: MT: QRS: 59 QRSD: 103 T: 41 QT: 464 QTc: 520 Interpretive Statements ATRIAL FIBRILLATION Compared to ECG 08/24/2020 02:01:53 ST (T wave) deviation no longer present Electronically Signed On 08-24-2020 16:07:18 DIGITAL COMPUTER SYSTEMS ANALYST by Rafael Carroll M.D. [id number]
[2020-08-24 04:07] LABS: Glucose Point of Care 192 mg/dL (70-110)
--- NOTE | 2020-08-24 04:15 | CTR_ITS ---
PROCEDURE INFORMATION: Exam: CT Angiography Head With Contrast Exam date and time: 08/24/2020 4:50 AM Age: 69 years old Clinical indication: Syncope and collapse; Prior surgery; Surgery type: Lung; Patient HX: Syncope with resp arrest. Intubated prior to er arrival. Rectal temp of 94 degrees. History of right hemisphere stroke. Additional info: AMS, sudden TECHNIQUE: Imaging protocol: Computed tomography angiography of the head with intravenous contrast. 3D rendering (Not supervised by radiologist): MIP and/or 3D reconstructed images were created by the technologist. Radiation optimization: All CT scans at this facility use at least one of these dose optimization techniques: automated exposure control; mA and/or kV adjustment per patient size (includes targeted exams where dose is matched to clinical indication); or iterative reconstruction. Contrast material: VISI 320; Contrast volume: 95 ml; Contrast route: INTRAVENOUS (IV); COMPARISON: CTA Head/Neck [id number] 11/27/2018 2:02 PM RADIATION DOSE METRICS: Total DLP (mGy-cm): 1560.07 FINDINGS: ANTERIOR CIRCULATION: Right internal carotid artery: Intracranial segment is occluded in its entirety. This is new. No aneurysm. Right middle cerebral artery: An M2 segment of the right middle cerebral artery in the right sylvian fissure is occluded (series 4, images [id number]). This is new. No aneurysm. Right anterior cerebral artery: Unremarkable. No occlusion or significant stenosis. No aneurysm. Left internal carotid artery: Scattered atherosclerotic calcification. Mild stenosis of cavernous segment. No aneurysm. Left middle cerebral artery: Unremarkable. No occlusion or significant stenosis. No aneurysm. Left anterior cerebral artery: Unremarkable. No occlusion or significant stenosis. No aneurysm. POSTERIOR CIRCULATION: Right vertebral artery: Intracranial portion is occluded for most of its course (short segment of reconstitution). This is new. No aneurysm. Left vertebral artery: Occluded at skull base level. This is similar to prior study. No aneurysm. Basilar artery: Occluded. This is new. No aneurysm. Right posterior cerebral artery: Unremarkable. No occlusion or significant stenosis. No aneurysm. Left posterior cerebral artery: Unremarkable. No occlusion or significant stenosis. No aneurysm. Brain: No definite mass, mass effect, or midline shift. Cerebral ventricles: The ventricles and sulci are mildly and diffusely prominent, compatible with global brain volume loss. Superimposed on this is ex vacuo dilation of the right lateral ventricle posterior horn. Bones/joints: Unremarkable. No acute fracture. Soft tissues: Unremarkable. IMPRESSION: 1. 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 This is new since 11/27/2018. 2. An M2 segment of the right middle cerebral artery in the right sylvian fissure is occluded. This is new since 11/27/2018. 3. Right vertebral artery intracranial portion is occluded for most of its course. This is new since 11/27/2018. 4. Basilar artery is occluded. This is new since 11/27/2018. 5. Left vertebral artery is occluded at skull base level. This is similar to 11/27/2018. PROCEDURE INFORMATION: Exam: CT Angiography Neck With Contrast Exam date and time: 08/24/2020 4:50 AM Age: 69 years old Clinical indication: Syncope and collapse; Prior surgery; Surgery type: Lung; Patient HX: Syncope with resp arrest. Intubated prior to er arrival. Rectal temp of 94 degrees. History of right hemisphere stroke. Additional info: AMS, sudden TECHNIQUE: Imaging protocol: Computed tomography angiography of the neck with intravenous contrast. 3D rendering (Not supervised by radiologist): MIP and/or 3D reconstructed images were created by the technologist. Radiation optimization: All CT scans at this facility use at least one of these dose optimization techniques: automated exposure control; mA and/or kV adjustment per patient size (includes targeted exams where dose is matched to clinical indication); or iterative reconstruction. Contrast material: VISI 320; Contrast volume: 95 ml; Contrast route: INTRAVENOUS (IV); COMPARISON: CTA Head/Neck [id number] 11/27/2018 2:02 PM RADIATION DOSE METRICS: Total DLP (mGy-cm): 1560.07 FINDINGS: Right common carotid artery: Unremarkable. No significant stenosis. No dissection or occlusion. Right internal carotid artery: Occluded from shortly beyond its origin. This is new. Right external carotid artery: Unremarkable. No occlusion or significant stenosis. Right vertebral artery: Occluded at C2 level. This is new. Left common carotid artery: Minimal stenosis throughout. No significant stenosis. No dissection or occlusion. Left internal carotid artery: Mild stenosis of the proximal segment. This is new. No dissection or occlusion. Left external carotid artery: Unremarkable. No occlusion or significant stenosis. Left vertebral artery: Severe stenosis at its origin (series 4, image 70). This is similar to prior study. No dissection or occlusion. Bones/joints: No acute fracture. Soft tissues: Unremarkable. No significant soft tissue swelling. CT/CT angio headneck* [id number] IMPRESSION: 1. Right internal carotid artery is occluded from shortly beyond its origin. This is new since 11/27/2018. 2. Right vertebral artery is occluded at C2 level. This is new since 11/27/2018. 3. Left vertebral artery is severely stenotic at its origin. This is similar to 11/27/2018. REFERENCES: NASCET CRITERIA. The degree of internal carotid artery stenosis is based on NASCET criteria. Normal is no stenosis. Mild is less than 50% stenosis. Moderate is 50-69% stenosis. Severe is 70% to 99% stenosis. Total occlusion is no detectable patent lumen. The findings were discussed with Dr. العلي on 08/24/2020 5:08 AM [employer]. Radiation Dose CTDIVOL = (mGy): DLP = 1560.07~1560.07 (mGy-cm)
--- NOTE | 2020-08-24 04:22 | PC.NURSE ---
valentino min placed on patient for core warming after patient rectal temperature recheck.
[2020-08-24 04:37] LABS: Troponin 5 2HR 23.02 ng/L (0-15)
[2020-08-24 04:41] LABS: Troponin 5 2HR Delta -4.98 ABS# (0-10)
[2020-08-24] MEDS: iodixanol 320 mg/mL 100mL Btl IV (04:51)
--- NOTE | 2020-08-24 05:34 | PC.NURSE ---
continuous rectal monitor inserted for optimal monitoring of patient temperature.
== END 2020-08-24 07:26 ==
PROVIDERS: Nurse Practitioner Family; Emergency Provider Family Medicine; PCP Nurse Practitioner Family
DX: I63.89 Other cerebral infarction (principal); I48.91 Unspecified atrial fibrillation; I10 Essential (primary) hypertension; E11.9 Type 2 diabetes mellitus without complications; E78.5 Hyperlipidemia, unspecified; Z79.82 Long term (current) use of aspirin; Z79.01 Long term (current) use of anticoagulants; Z86.73 Personal history of transient ischemic attack (TIA), and cerebral infarction without residual deficits; Z86.14 Personal history of Methicillin resistant Staphylococcus aureus infection
CPT/HCPCS: 12345; 36415; 36416; 36600; 51702; 70450; 70496; 70498; 71045; 80051; 80053; 81001; 82330; 82805; 82962; 83605; 83735; 83880; 84484; 85025; 85610; 85730; 87040; 87804; 93005; 94002; 96365; 96366; 99291; 99292; J7030; Q9967